=== PATIENT | male | born 1940 | race Caucasian/White ===

== ENCOUNTER 2017-04-25 09:20 | Emergency (ER) | payer OTHER ==
[~2017-04-25] VITALS: Ht 182.9 cm; Wt 98.4 kg
[~2017-04-25 09:20] MED LIST: ALBU8.5H2 IH; ASPI-605 PO; CALC500T71 PO; CHOL400C8 PO; FINA5TAB11 PO; LISI2.5T2 PO; METO25TA6 PO; MODA200T30 PO; PRED2.5T PO; ROPI0.253 PO; SPIR25TA PO
[2017-04-25] MEDS ORDERED: IV NS 0.9% 500 ML BAG IV ONE (09:30)
--- NOTE | 2017-04-25 09:32 | NUR ---
STARR FROM HOME DUE TO GENERALIZED WEAKNESS AND LOW BP. PATIENT IS AWAKE, HOWEVER PATIENT APPEARS CONFUSED. PATIENT IN NO APPARENT DISTRESS, RESPIRATION EVEN AND UNLABORED,. SKIN IS WARM TO TOUCH AND NON DIAPHORETIC. PT IS AFEBRILE. NO CHEST PAIN REPORTED, DENIES N/V/D. NOTED WITH RFA G18 IV WITH GOOD BLOOD RETURN. GOWNED PT AND PLACED ON TELE MONITOR. VSS
[2017-04-25] MEDS ORDERED: IV NS 0.9% 500 ML IV ONE (09:37)
[2017-04-25] MEDS ORDERED: IV SET PRIMARY PUMP SET 1 EA INFUS.SET MC ONE ×3 (09:37→11:09)
--- NOTE | 2017-04-25 09:40 | NUR ---
MD MATTHEW SAMANIEGO AT BEDSIDE FOR EVAL
[2017-04-25 09:48] LABS: BASOPHILS % (AUTO) 0.3 % (0.0-2.0); EOSINOPHILS % (AUTO) 0.1 % (0.0-6.0); HEMATOCRIT 40 % (39-51); HEMOGLOBIN 13.3 g/dL (13.5-17.5); LYMPHOCYTES # (AUTO) 0.6 /CMM (0.8-4.8); MEAN CORPUSCULAR HEMOGLOBIN 32 PG (26.0-33.0); MEAN CORPUSCULAR HGB CONC 34 g/dl (31.0-36.0); MEAN CORPUSCULAR VOLUME 95 fL (80-96); MONOCYTES # (AUTO) 0.7 /CMM (0.1-1.30); MONOCYTES % (AUTO) 9.6 % (2.0-12.0); NEUTROPHILS # (AUTO) 5.8 /CMM (1.8-8.9); PLATELET COUNT (AUTO) 148 /CMM (150-450); RDW COEFFICIENT OF VARIATION 14.2 (11.5-15.0); RED BLOOD CELL COUNT(AUTO) 4.17 MIL/uL (4.5-6.0); WHITE BLOOD COUNT (AUTO) 7.2 K/uL (4.3-11.0)
--- NOTE | 2017-04-25 10:00 | NUR ---
DRAFTER PLUMBING AT BS FOR CXRAY
[2017-04-25 10:06] LABS: CALCIUM, SERUM 8.9 mg/dL (8.5-10.1); CARBON DIOXIDE 28 mmol/L (21-32); CHLORIDE 105 mmol/L (98-107); CREATININE 1.6 mg/dL (0.6-1.3); GLUCOSE 116 mg/dL (74-106); POTASSIUM 4.8 mmol/L (3.5-5.1); SODIUM SERUM 140 mmol/L (136-145); UREA NITROGEN, BLOOD 37 mg/dL (7-18)
[2017-04-25 10:10] LABS: INR 1.06 (0.87-1.13); PROTHROMBIN TIME 11.4 SECS (9.5-12.7); TROPONIN I < 0.017 ng/mL (0.00-0.056)
--- NOTE | 2017-04-25 10:10 | NUR ---
URINE SAMPLE SENT TO LAB
[2017-04-25 10:15] LABS: APPEARANCE,URINE Clear (CLEAR); BILIRUBIN,URINE SMALL (NEGATIVE); BLOOD, URINE Trace-intact Ery/uL (NEGATIVE); COLOR,URINE Yellow (YELLOW); KETONES,URINE Trace (NEGATIVE); LEUKOCYTE ESTERASE ,URINE Negative (NEGATIVE); NITRITE, URINE Negative (NEGATIVE); PROTEIN,URINE Trace mg/dl (NEGATIVE); UGLUCOSE Negative (NEGATIVE); UROBILINOGEN,URINE 0.2 EU/dL (0.2)
[2017-04-25 10:17] LABS: ALANINE AMINOTRANSFERASE 46 U/L (12-78); ALBUMIN 2.7 g/dL (3.4-5.0); ALKALINE PHOSPHATASE 104 U/L (46-116); ASPARTATE AMINOTRANSFERASE 35 U/L (15-37); BILIRUBIN,DIRECT 0.1 mg/dL (0.0-0.2); BILIRUBIN,TOTAL 0.5 mg/dL (0.2-1.0); TOTAL PROTEIN, SERUM 6.8 g/dL (6.4-8.2)
[2017-04-25 10:25] LABS: BACTERIA,URINE Few /HPF (None Seen); SQUAMOUS EPITHELIAL CELL,UR Few /HPF (None Seen)
[2017-04-25] MEDS ORDERED: CEFTRIAXONE 1 G in IV D5W 50 ML IV ONE (11:00)
[2017-04-25] MEDS ORDERED: AZITHROMYCIN 500 MG in IV D5W 250 ML IV ONE (11:00)
[2017-04-25] MEDS ORDERED: CEFTRIAXONE 1GM BAG (ER ONLY) 50 ML IV ONE (11:03)
[2017-04-25] MEDS ORDERED: CYAN250014 PO (11:06)
[2017-04-25] MEDS ORDERED: TRAZ-144 PO (11:06)
[2017-04-25] MEDS ORDERED: CALC-883 PO (11:06)
[2017-04-25] MEDS ORDERED: CARB-95 PO (11:06)
[2017-04-25] MEDS ORDERED: TAMS0.4C34 PO (11:06)
[2017-04-25] MEDS ORDERED: GABA600T2 PO (11:06)
[2017-04-25] MEDS ORDERED: CHOL100062 PO (11:06)
[2017-04-25] MEDS ORDERED: DULO60CA45 PO (11:06)
[2017-04-25] MEDS ORDERED: ATOR20TA PO (11:06)
--- NOTE | 2017-04-25 11:17 | NUR ---
DUE MEDS GIVEN ORDERED
[2017-04-25 11:20] VITALS: BP 107/58
--- NOTE | 2017-04-25 11:24 | NUR ---
[facility] CALLED [phone].
--- NOTE | 2017-04-25 11:46 | NUR ---
RECEIVED CALL FROM [facility], PT WILL BE GOING TO [facility] ER, ACCEPTED BY , NUMBER FOR REPORT IS [phone], [facility] SHOULD ARRIVE BY 1245PM
--- NOTE | 2017-04-25 11:55 | NUR ---
REPORT GIVEN TO NURSE MAG
--- NOTE | 2017-04-25 12:50 | NUR ---
PT TRASNPORTED TO [facility]-- PICKEP UP BY [facility], VSS. NEEDS ATTANDED
== END 2017-04-25 12:51 | disposition short-term general hospital (02) ==
LOC: ER 09:21
DX: S80.212A Abrasion, left knee, initial encounter (principal); S80.211A Abrasion, right knee, initial encounter; I11.0 Hypertensive heart disease with heart failure; I50.9 Heart failure, unspecified; N28.9 Disorder of kidney and ureter, unspecified; J18.9 Pneumonia, unspecified organism; G20 Parkinson's disease; M48.00 Spinal stenosis, site unspecified; Z79.82 Long term (current) use of aspirin; Z88.1 Allergy status to other antibiotic agents; Z88.2 Allergy status to sulfonamides; Z88.8 Allergy status to other drugs, medicaments and biological substances; W01.198A Fall on same level from slipping, tripping and stumbling with subsequent striking against other object, initial encounter; Y93.89 Activity, other specified; Y92.89 Other specified places as the place of occurrence of the external cause; Y99.9 Unspecified external cause status
CPT/HCPCS: 36415; 71010; 80048; 80076; 81001; 83605; 83880; 84484; 85025; 85730; 87040 ×2; 87086; 93005; 96365; 96368; 99291; A4606; J0456; J0696; J7040; J7060; 81000-TC; Z7610

== ENCOUNTER 2017-12-09 05:51 | Emergency (ER) | payer OTHER ==
[~2017-12-09] VITALS: Ht 188 cm; Wt 102.1 kg
[~2017-12-09 05:51] MED LIST changes: -ALBU8.5H2 IH; +ATOR20TA PO; +CALC-883 PO; -CALC500T71 PO; +CARB-95 PO; +CHOL100062 PO; -CHOL400C8 PO; +CYAN250014 PO; +DULO60CA45 PO; -FINA5TAB11 PO; +GABA600T2 PO; -LISI2.5T2 PO; -METO25TA6 PO; +MODA200T22 PO; -MODA200T30 PO; -PRED2.5T PO; -ROPI0.253 PO; -SPIR25TA PO; +TAMS0.4C34 PO; +TRAZ-144 PO
--- NOTE | 2017-12-09 05:53 | NUR ---
PT TO ER BED 5. PT BIBRA FROM HOME C/O COUGH AND SOB SINCE LAST NIGHT PER . PT PLACED IN GOWN AND ON SIGNAL REPAIRER. VSS/RESP EVEN UNLABORED/NAD NOTED/SKIN WARM AND DRY/DENIES N-V-D/AOX4. AWAITING MD DURBIN. Addendum: 12/09/17 at 0611 by ELMA RT AT BEDSIDE.
--- NOTE | 2017-12-09 05:55 | NUR ---
20G TO R HAND X 1 ATTEMPT USING ASEPTIC TECH, BLOOD CULT X 2 AND BLOOD HANDED OVER TO LAB AT BEDSIDE. IV FLUSHES EASILY WITH NS.
--- NOTE | 2017-12-09 05:56 | NUR ---
PT PLACED ON A N/C @3LPM O2.
[2017-12-09] MEDS ORDERED: ALBUTEROL FS 2.5 MG/3 ML VIAL.NEB CONTNEB ONE (06:30)
[2017-12-09] MEDS ORDERED: ASPIRIN 325 MG TABLET PO ONE (06:30)
[2017-12-09] MEDS ORDERED: FUROSEMIDE 40 MG/4 ML VIAL IV ONE (06:30)
[2017-12-09] MEDS ORDERED: ASPIRIN 325 MG TABLET ONE (06:37)
[2017-12-09] MEDS ORDERED: FUROSEMIDE 40 MG/4 ML VIAL ONE (06:37)
[2017-12-09] MEDS ORDERED: FUROSEMIDE 20 MG/2 ML VIAL ONE (06:37)
[2017-12-09 06:42] LABS: BASOPHILS % (AUTO) 0.1 % (0.0-2.0); EOSINOPHILS # (AUTO) 0.2 /CMM (0.0-0.7); EOSINOPHILS % (AUTO) 2.3 % (0.0-6.0); HEMATOCRIT 39 % (39-51); HEMOGLOBIN 13.4 g/dL (13.5-17.5); LYMPHOCYTES # (AUTO) 0.4 /CMM (0.8-4.8); LYMPHOCYTES % (AUTO) 5.3 % (20.0-44.0); MEAN CORPUSCULAR HEMOGLOBIN 33 PG (26.0-33.0); MEAN CORPUSCULAR HGB CONC 34 g/dl (31.0-36.0); MEAN CORPUSCULAR VOLUME 95 fL (80-96); MONOCYTES # (AUTO) 0.6 /CMM (0.1-1.30); MONOCYTES % (AUTO) 7.3 % (2.0-12.0); NEUTROPHILS # (AUTO) 6.6 /CMM (1.8-8.9); PLATELET COUNT (AUTO) 157 /CMM (150-450); RDW COEFFICIENT OF VARIATION 15.2 (11.5-15.0); RED BLOOD CELL COUNT(AUTO) 4.11 MIL/uL (4.5-6.0); WHITE BLOOD COUNT (AUTO) 7.8 K/uL (4.3-11.0)
[2017-12-09] MEDS ORDERED: ALBUTEROL FS 2.5 MG/3 ML VIAL.NEB ONE (06:45)
--- NOTE | 2017-12-09 06:49 | NUR ---
RT AT BEDSIDE FOR NEB TX PER MD ORDERS.
[2017-12-09 06:51] LABS: CALCIUM, SERUM 9.5 mg/dL (8.5-10.1); CARBON DIOXIDE 33 mmol/L (21-32); CHLORIDE 105 mmol/L (98-107); GLUCOSE 92 mg/dL (74-106); POTASSIUM 4.9 mmol/L (3.5-5.1); SODIUM SERUM 142 mmol/L (136-145); UREA NITROGEN, BLOOD 21 mg/dL (7-18)
[2017-12-09 06:55] LABS: TROPONIN I < 0.017 ng/mL (0.00-0.056)
[2017-12-09 06:57] LABS: INR 0.95 (0.87-1.13); PROTHROMBIN TIME 9.9 SECS (9.5-12.7)
--- NOTE | 2017-12-09 06:57 | NUR ---
XRAY AT BEDSIDE.
[2017-12-09 07:00] LABS: ALANINE AMINOTRANSFERASE 30 U/L (12-78); ALBUMIN 3.3 g/dL (3.4-5.0); ALKALINE PHOSPHATASE 112 U/L (46-116); ASPARTATE AMINOTRANSFERASE 36 U/L (15-37); B-TYPE NATRIURETIC PEPTIDE 36 PG/ML (0-125); BILIRUBIN,TOTAL 0.2 mg/dL (0.2-1.0)
--- NOTE | 2017-12-09 07:23 | NUR ---
REPORT GIVEN TO MERE MEDEL FOR DAWNA.
--- NOTE | 2017-12-09 07:35 | NUR ---
CECELIA MCKINNON [phone] CELL . [phone] HOME
[2017-12-09] MEDS ORDERED: IV NS 0.9% 500 ML BAG IV ONE (09:00)
[2017-12-09] MEDS ORDERED: MELA3TAB PO (09:27)
[2017-12-09] MEDS ORDERED: DOCU-141 PO (09:27)
--- NOTE | 2017-12-09 10:30 | NUR ---
CALLED [facility] [phone] SPOKE WITH ROSETTA WILL ASSIGN TO AND WILL CALL US BACK
--- NOTE | 2017-12-09 11:35 | NUR ---
INCREASED O2 @4LPM VIA [facility]
--- NOTE | 2017-12-09 11:53 | NUR ---
TRANSFER INFO: [facility] [phone] AMBULANCE ETA 1230
[2017-12-09 12:20] VITALS: BP 111/52
--- NOTE | 2017-12-09 12:27 | NUR ---
GAVE REPORT TO ISIS RODRIGEUZ Nieves
== END 2017-12-09 12:47 | disposition short-term general hospital (02) ==
LOC: ER 05:52
DX: R09.02 Hypoxemia (principal); G35 Multiple sclerosis; G20 Parkinson's disease; R06.02 Shortness of breath; F03.90 Unspecified dementia, unspecified severity, without behavioral disturbance, psychotic disturbance, mood disturbance, and anxiety; I10 Essential (primary) hypertension; Z79.82 Long term (current) use of aspirin; Z88.2 Allergy status to sulfonamides; Z88.1 Allergy status to other antibiotic agents; Z88.8 Allergy status to other drugs, medicaments and biological substances
CPT/HCPCS: 36415; 71045; 80048; 80076; 83880; 84484; 85025; 85730; 87040 ×2; 87804; 93005; 94640 ×2; 96374; 99285; A4606; J1940 ×2; J7040; 87400; Z7610